=== PATIENT | female | born 1935 | race Caucasian/White ===

== ENCOUNTER → 2016-10-25 | Outpatient (CLI) | payer OTHER, BC ==
[~2016-10-25] MED LIST: ASPI-113 PO; CLC100X PO; ESCI1TAB10 PO; FENO145T26 PO; FENT50DI19 TD; GLIM1TAB2 PO; NRN/600 PO; PANT1TAB48 PO; SITA50TA PO; TRAM-10 PO; [UNRECOGNIZED DRUG - CODE] OPB; [UNRECOGNIZED DRUG - REMARK]
--- NOTE | 2016-10-25 09:55 | DIAGNOSTIC IMAGING REPORT ---
LUMBAR SPINE MRI HISTORY: Back pain STENOSIS, PT WILL BE MEDICATED FOR CLAUSTROPHOBIA TECHNIQUE: Multiplanar multisequence MRI of the lumbar spine was performed without the use of contrast. COMPARISON: None available FINDINGS: For the purpose of the report the L5-S1 disc space will be located on axial image 27 of 30. Significant degenerative intervertebral disc change at the entire lumbar region. Prior posterior operative changes to low lumbar spine including posterior paraspinal soft tissues L1-L2: Prior posterior fusion procedure. No evidence of disc herniation spinal stenosis. Somewhat thickened hilum terminale possibly a postoperative basis. L2-L3: Slight broad-based disc bulge. Neuroforamina are patent bilaterally L3-L4: Prior posterior fusion-type procedure. Left posterior bulging disc component. Osteophytic narrowing of the left as well as right neural foramina. L4-L5: Slight broad-based disc bulge. Posterior fusion. L5-S1: Broad-based bulging disc. Prior posterior laminotomy and fusion. No major compromise of the spinal canal. Moderate narrowing of the neuroforamina bilaterally. Asymmetric appearance of the kidneys with CT evaluation of the abdomen and pelvis suggested. IMPRESSION: 1. Findings consistent with extensive laminectomy and fusion throughout the entire lumbar region. 2. Multilevel bulging disc components with no major impact upon the thecal sac. 3. Moderate osteophytic narrowing of multiple neural foramina bilaterally. 4. Potential asymmetric renal size with computed tomography versus ultrasonography suggested as follow-up. Electronically signed by: Phillip Sanchez M.D. 10/25/2016 9:53 AM Dictated Date/Time: 10/25/2016 9:40 AM
== END | disposition home or self-care (01) ==
LOC: C.MRIBC 08:25
PROVIDERS: ATTEND Pain Medicine Interventional Pain Medicine
DX: M99.83 Other biomechanical lesions of lumbar region (principal); M51.26 Other intervertebral disc displacement, lumbar region; M25.78 Osteophyte, vertebrae; M48.06 Spinal stenosis, lumbar region